=== PATIENT | female | born 1950 | race Caucasian/White ===

== ENCOUNTER 2021-05-30 23:05 | Emergency (ER) | payer MEDICARE, OTHER, SELFPAY ==
[2021-05-30 23:17] VITALS: BP 152/70; PULSE 75; RESP 24; TEMP 36.6; O2SAT 92
--- NOTE | 2021-05-30 23:20 | DI.RAD.S_ITS ---
PROCEDURE: XR CHEST 1V INDICATIONS: Shortness of breath TECHNIQUE: One view of the chest was acquired. COMPARISON: None. FINDINGS: Surgical changes and devices: Postsurgical changes are demonstrated in the mediastinum. There is a leadless pacer device noted. Lungs and pleura: There is pulmonary edema. Bilateral pleural effusions are also demonstrated small on the left and small to moderate on the right. Associated bibasilar opacities likely represent compressive atelectasis. No evidence of pneumothorax. Mediastinum: Heart size appears within normal limits. Bones and chest wall: No suspicious bony lesions. Overlying soft tissues appear unremarkable. IMPRESSION: 1. Pulmonary edema and bilateral pleural effusions, right greater than left. Dictated by: Jan Morales M.D. on 05/31/2021 at 0:08 Approved by: Jan Morales M.D. on 05/31/2021 at 0:10
--- NOTE | 2021-05-30 23:36 | ED_ITS ---
HPI - General Adult General Chief complaint: Shortness of Breath/Dyspnea Stated complaint: SOB Time Seen by Provider: 05/30/21 23:18 Source: patient Mode of arrival: Ambulatory Limitations: no limitations History of Present Illness HPI narrative: Patient is a 70-year-old female. Is visiting the area. Has a history of lung cancer. Also has a history of mesothelioma. Does get Keytruda infusions. Had 1 approximately 1 week ago prior to traveling here. She reports that over the past couple days she has had increasing shortness of breath specifically shortness of breath with exertion. She does admit that she has had some weight gain recently although she does not feel like she has been eating all that much. No chest pain. No cough. She has had pleural effusions in the past that have needed drained. No lower extremity swelling. She is not on a diuretic. Related Data Previous Rx's Medication Instructions Recorded furosemide 20 mg tablet (Lasix) 20 mg PO DAILY #30 tab 05/31/21 Review of Systems Constitutional Constitutional: Denies fever(s) and Denies headache(s) ENT Ears, Nose, Mouth, and Throat: Denies headache(s) Cardiovascular Cardiovascular: Reports as per HPI, Reports system reviewed and no additional complaints, except as documented, Denies chest pain, Reports dyspnea and Reports dyspnea on exertion Respiratory Respiratory: Denies cough, Reports dyspnea and Reports dyspnea on exertion Gastrointestinal Gastrointestinal: Reports system reviewed and no additional complaints, except as documented and Denies abdominal pain Musculoskeletal Musculoskeletal: Reports system reviewed and no additional complaints, except as documented Comments: No lower extremity edema Integumentary/Breasts Skin/Breast: Reports system reviewed and no additional complaints, except as documented Neurologic Neurologic: Reports system reviewed and no additional complaints, except as documented and Denies headache(s) Hematologic/Lymphatic On Anticoagulants: No Patient History Medical History Lung cancer Mesothelioma Social History marital status: household members: spouse Exam Initial Vital Signs Initial Vital Signs: Vital Signs Temperature 97.8 F 05/30/21 23:17 Pulse Rate 75 05/30/21 23:17 Respiratory Rate 24 05/30/21 23:17 Blood Pressure 152/70 H 05/30/21 23:17 Pulse Oximetry 92 05/30/21 23:17 Const General: cooperative, comfortable and well developed Limitations: mental status not altered [facility] Head: normal to inspection and normocephalic Eyes General: appearance normal, both eyes and all related structures Resp Effort & Inspection: normal respiratory effort and tachypneic Auscultation: clear to auscultation bilaterally Cardio Rate: bradycardic Rhythm: regular rhythm GI Inspection: non-distended Palpation: soft Skin General: no rashes or lesions noted Neuro General: patient alert, patient awake, patient oriented x3 and moves all extremities Extrem Other: No edema in the lower extremities. Does have swelling in her right upper extremity but this is not new for her Psych Appearance: grossly normal and well kempt Course Orders Ordered: ED Orders 05/30/21 23:19 Complete Blood Count AUTO DIFF Stat 05/30/21 23:20 XR chest 1V Stat EKG-12 Lead Stat 05/30/21 23:25 Comprehensive Metabolic Panel Stat Lipase Stat NT-proBNP (BNP-Adult 18+) Stat Procalcitonin Stat Troponin & CK Cardiac Panel Stat 05/30/21 23:48 COVID19 - ADMIT ([employer] swab/PCR) Stat Vital Signs Vital signs: Vital Signs - 8 hr 05/30/21 23:17 Temperature 97.8 F Pulse Rate 75 Respiratory Rate 24 Blood Pressure 152/70 H Pulse Oximetry 92 Medical Decision Making Lab Data Lab results reviewed: Yes I reviewed the patient's lab results. Result diagrams: 05/31/21 00:05 05/30/21 23:25 Labs: Lab Results 05/30/21 05/30/21 05/31/21 Range/Units 23:25 23:48 00:05 WBC 6.4 (4.5-11.0) X10^3/uL RBC 4.40 (4.0-5.2) X10^6/uL Hgb 12.6 (12.0-16.0) g/dL Hct 38.7 (36-46) % MCV 88.0 (80-100) fL MCH 28.6 (26-34) PG MCHC 32.5 (30-36) % RDW 15.5 H (11.6-14.8) % Plt Count 225 (150-400) X10^3/uL Neut % (Auto) 75.9 H (50-75) % Lymph % (Auto) 10.7 L (25-40) % [place] % (Auto) 10.8 (3-14) % Eos % (Auto) 1.9 L (2-4) % Baso % (Auto) 0.7 (0-2) % Neut # (Auto) 4900 (6774-5279) /uL Lymph # (Auto) 700 L (0959-4906) /uL [place] # (Auto) 700 (0-900) /uL Eos # (Auto) 100 (0-450) /uL Baso # (Auto) 0 (0-100) /uL Sodium 140 (137-145) mmol/L Potassium 4.2 (3.4-5.1) mmol/L Chloride 107 (98-107) mmol/L Carbon Dioxide 29 (22-32) mmol/L BUN 19 H (7-17) mg/dL Creatinine 0.95 (0.52-1.04) mg/dL Estimated GFR 58.0 L (>60) mL/min BUN/Creatinine Ratio 20.0 (6-22) Glucose 119 H (80-110) mg/dL Calcium 9.4 (8.4-10.2) mg/dL Total Bilirubin 0.7 (0.2-1.3) mg/dL AST 39 H (14-36) IU/L ALT 72 H (<35) IU/L Alkaline Phosphatase 97 (38-126) U/L Total Creatine Kinase 40 (30-135) U/L CK-MB (CK-2) TNP CK-MB (CK-2) Rel Index TNP Troponin I < 0.012 (0.01-0.034) ng/mL NT-Pro-B Natriuret Pep 2500 H (<125) pg/mL Total Protein 8.2 (6.3-8.2) g/dL Albumin 4.1 (3.5-5.0) g/dL Globulin 4.1 (1.7-4.1) g/dL Albumin/Globulin Ratio 1.0 (1.0-2.8) Lipase 73 (23-300) U/L Procalcitonin 0.05 (<0.5) ng/mL SARS-CoV-2 (PCR) Negative (Negative) Imaging Data Chest x-ray: Radiologist's Impression: [address] [address] XRay Report Signed Patient: Alysha Hanna MR#: [id number] : 1950 Acct:[id number] Age/Sex: 70 / F Date of Service: 05/30/21 Loc: ED Accession Number: [id number] ?? Procedure: XR chest 1V Ordering Provider: Gildardo Johnson D.O. PROCEDURE:? XR CHEST 1V ? INDICATIONS:? Shortness of breath ? TECHNIQUE:? One view of the chest was acquired.? ? COMPARISON:? None. ? FINDINGS:? ? Surgical changes and devices:? Postsurgical changes are demonstrated in the mediastinum.? There is a leadless pacer device noted.? ? Lungs and pleura:? There is pulmonary edema.? Bilateral pleural effusions are also demonstrated small on the left and small to moderate on the right.? Associated bibasilar opacities likely represent compressive atelectasis.? No evidence of pneumothorax. ? Mediastinum:? Heart size appears within normal limits. ? Bones and chest wall:? No suspicious bony lesions.? Overlying soft tissues appear unremarkable.? ? IMPRESSION:? ? 1. Pulmonary edema and bilateral pleural effusions, right greater than left. ? ? Dictated by: Jan Morales M.D. on 05/31/2021 at 0:08 ? ? Approved by: Jan Morales M.D. on 05/31/2021 at 0:10? ECG Data Attestation: I personally reviewed and interpreted this ECG as follows: Prior ECG tracings: not available for review Interpretation: Sinus bradycardia Ventricular rate of 58 Frequent PACs Right bundle branch block Normal QRS Normal QTC No ST T wave changes MDM Narrative Medical decision making narrative: Patient has no chest pain. EKG shows frequent PACs. Does have an elevated BNP. Chest x-rays do show effusions however in not large enough that I would suspect would be improved by thoracentesis. There are findings consistent with pulmonary edema. Given her presentation will start her on Lasix. She is not currently on any diuretics. She was given a dose here in the emergency department and was sent home with a prescription for it. Will have her contact her providers when she returns home. She was given return precautions. She expressed understanding and agreement. Discharge Plan Departure Patient Disposition: Home Clinical Impression: Pulmonary edema Instructions: DI for Shortness of Breath Activity Restrictions/Additional Instructions: Continue to take all of your medications as directed. We will start you on a diuretic called Lasix. This is a 1 time a day medication that you can take as needed. When you return home contact your providers for further workup. Return to the emergency department for any new or worsening symptoms. Prescriptions: New furosemide [Lasix] 20 mg tablet 20 mg PO DAILY Qty: 30 0RF
[2021-05-30 23:45] LABS: Alanine Aminotransferase 72 IU/L (<35); Albumin 4.1 g/dL (3.5-5.0); Alkaline Phosphatase 97 U/L (38-126); Aspartate Aminotransferase 39 IU/L (14-36); Bilirubin Total 0.7 mg/dL (0.2-1.3); Blood Urea Nitrogen 19 mg/dL (7-17); Calcium 9.4 mg/dL (8.4-10.2); Carbon Dioxide 29 mmol/L (22-32); Chloride 107 mmol/L (98-107); Creatine Kinase 40 U/L (30-135); Globulin 4.1 g/dL (1.7-4.1); Glucose 119 mg/dL (80-110); Lipase 73 U/L (23-300); Sodium 140 mmol/L (137-145); Total Protein 8.2 g/dL (6.3-8.2)
[2021-05-30 23:57] LABS: NT-proBNP (BNP-Adult 18+) 2500 pg/mL (<125); Troponin I < 0.012 ng/mL (0.01-0.034)
[2021-05-30 23:59] LABS: HEMOLYSIS 79 (0-50)
[2021-05-31] LABS: Potassium 4.2 mmol/L (3.4-5.1)
[2021-05-31 00:02] LABS: Procalcitonin 0.05 ng/mL (<0.5)
[2021-05-31 00:18] LABS: Add Manual Diff / Slide Review NO; Basophils Absolute Auto 0 /uL (0-100); Basophils Percent Auto 0.7 % (0-2); Eosinophils Absolute Auto 100 /uL (0-450); Eosinophils Percent Auto 1.9 % (2-4); Hematocrit 38.7 % (36-46); Hemoglobin 12.6 g/dL (12.0-16.0); Lymphocytes Absolute Auto 700 /uL (1100-4500); Lymphocytes Percent Auto 10.7 % (25-40); Mean Corpuscular HGB Conc 32.5 % (30-36); Mean Corpuscular Hemoglobin 28.6 PG (26-34); Monocytes Absolute Auto 700 /uL (0-900); Monocytes Percent Auto 10.8 % (3-14); Neutrophils Absolute Auto 4900 /uL (1500-7000); Neutrophils Percent Auto 75.9 % (50-75); Platelet Count 225 X10^3/uL (150-400); Red Cell Distribution Width 15.5 % (11.6-14.8); White Blood Cell Count 6.4 X10^3/uL (4.5-11.0)
[2021-05-31 00:44] LABS: COVID19 - ADMIT (NP swab/PCR) Negative (Negative)
[2021-05-31] MEDS: FUROSEMIDE 40 MG TABLET PO (01:02)
[2021-05-31 01:07] VITALS: BP 135/62; PULSE 52; RESP 16; O2SAT 96
== END 2021-05-31 01:12 | disposition home or self-care (01) ==
PROVIDERS: Emergency Provider Emergency Medicine
DX: J81.1 Chronic pulmonary edema (principal); I49.1 Atrial premature depolarization; Z20.822 Contact with and (suspected) exposure to COVID-19
CPT/HCPCS: 36415; 71045; 80053; 82550; 83690; 83880; 84145; 84484; 85025; 87635; 93005; 99284; C9803